=== PATIENT | male | born 1985 | race Caucasian/White ===

== ENCOUNTER 2016-08-29 00:53 | Emergency (ER) | payer OTHER ==
[~2016-08-29] VITALS: Ht 177.8 cm; Wt 72.7 kg
[2016-08-29 00:58] VITALS: BP 139/89
[2016-08-29] MEDS ORDERED: VISTARIL 2525 MG/CAP PO (01:02)
[2016-08-29] MEDS ORDERED: PREDNISONE20 MG PO (01:02)
[2016-08-29 01:21] VITALS: TEMP 97.2
[2016-08-29 02:13] VITALS: PULSE 85
== END 2016-08-29 02:13 | disposition home or self-care (01) ==
LOC: COL.ER 00:53 → EDBD 01:05 → COL.ER 02:13
DX: L42 Pityriasis rosea (principal)